=== PATIENT | male | born 1980 | race Caucasian/White ===

== ENCOUNTER 2021-11-30 15:03 | Inpatient (IN) ==
[2021-11-30] MEDS ORDERED: MOM Conc 10 ML UD.LIQ PO PRN (17:18)
[2021-11-30] MEDS: 0.9 % Sodium Chloride 500 ML ONE (17:29)
[2021-11-30] MEDS: *HR* OxyCODONE ER (12 HR) 10 MG TABLET PO SCH (18:11)
[2021-11-30] MEDS: *HR* OxyCODONE Immed Rel 5 MG TABLET PO PRN ×2 (18:36→23:22)
[2021-11-30] MEDS ORDERED: Ipratropium/Albuterol Neb 3 ML IH SCH (20:00)
[2021-11-30] MEDS: Budesonide Neb 0.25 MG/2 ML IH SCH (22:03)
[2021-11-30] MEDS: Ipratropium/Albuterol Neb 3 ML IH SCH (22:03)
[2021-11-30 22:43] LABS: Bilirubin,Urine Negative (Negative); Blood,Urine Negative (Negative); Clarity,Urine Clear (Clear); Color,Urine Yellow (Yellow); Glucose,Urine (UA) Normal (Normal); Ketones,Urine Negative (Negative); Leukocyte Esterase,Urine Negative (Negative); Nitrite,Urine Negative (Negative); Protein,Urine 100 mg/dL (Neg-Trace); Urobilinogen,Urine Normal (Normal)
[2021-11-30 22:44] LABS: Bacteria,Urine None Seen per hpf (None-Few); RBC,Urine 0-3 per hpf (0-3); Squamous Epithelial Cell,Urine Few per hpf (None-Few); WBC,Urine 0-3 per hpf (0-3)
[2021-11-30] MEDS: Gabapentin 300 MG CAPSULE PO SCH (23:21)
[2021-11-30] MEDS: Melatonin 3 MG TABLET PO SCH (23:21)
[2021-11-30] MEDS: Linezolid 600 MG TABLET PO SCH (23:22)
[2021-11-30] MEDS: Sennosides/Docusate Sodium TABLET PO SCH (23:22)
[2021-11-30] MEDS: Meropenem 1,000 MG in 0.9 % Sodium Chloride Mini Bag 100 ML IVPB SCH (23:27)
[2021-12-01] MEDS: Ipratropium/Albuterol Neb 3 ML IH SCH ×4 (04:02→20:57)
[2021-12-01 06:40] LABS: Hematocrit 28.9 % (37.5-50.1); Hemoglobin 8.6 g/dL (12.9-16.9); Mean Corpuscular HGB Conc 29.8 g/dL (31.6-35.5); Mean Corpuscular Hemoglobin 26.7 pg (28.0-33.3); Mean Corpuscular Volume 89.8 fL (83.0-100.0); Mean Platelet Volume 8.8 fL (9.4-12.4); Platelet Count 503 K/mcL (140-400); Red Blood Count 3.22 M/mcL (4.19-5.50); White Blood Count 10.5 K/mcL (4.3-11.1)
[2021-12-01 06:55] LABS: Alanine Aminotransferase 10 Units/L (7-52); Albumin 2.7 g/dL (3.5-5.7); Alkaline Phosphatase 66 Units/L (34-104); Aspartate Amino Transferase 9 Units/L (13-39); BUN/Creatinine Ratio 15 (6-26); Bilirubin,Total 0.2 mg/dL (0.3-1.0); Blood Urea Nitrogen 15 mg/dL (6-20); Calcium 9.1 mg/dL (8.6-10.3); Carbon Dioxide 27 mEq/L (23-29); Chloride 103 mEq/L (98-107); Globulin 2.6 g/dL (2.4-3.5); Glucose 94 mg/dL (70-105); Magnesium 1.7 mg/dL (1.6-2.6); Osmolality,Calculated 285 (280-300); Sodium 137 mEq/L (136-145); Total Protein 5.3 g/dL (6.4-8.9); eGFR For African Americans > 60 (> 60); eGFR For Non-African Americans > 60 (> 60)
[2021-12-01] MEDS: *HR* Enoxaparin 40 MG/0.4 ML SYRINGE SQ SCH (06:55)
[2021-12-01] MEDS: *HR* OxyCODONE ER (12 HR) 10 MG TABLET PO SCH ×2 (06:56→16:27)
[2021-12-01] MEDS: Sennosides/Docusate Sodium TABLET PO SCH ×2 (08:11→20:42)
[2021-12-01] MEDS: Ascorbic Acid 500 MG TABLET PO SCH (08:11)
[2021-12-01] MEDS: Linezolid 600 MG TABLET PO SCH ×2 (08:11→20:42)
[2021-12-01] MEDS: Folic Acid 1 MG TABLET PO SCH (08:12)
[2021-12-01] MEDS: amLODIPine 5 MG TABLET PO SCH (08:12)
[2021-12-01] MEDS: Cholecalciferol (D-3) 1,000 UNIT (25MCG) TABLET PO SCH (08:12)
[2021-12-01] MEDS: Gabapentin 300 MG CAPSULE PO SCH ×2 (08:12→20:42)
[2021-12-01] MEDS: polyethylene glycoL 3350 17 GM POWD.PACK PO SCH (08:12)
[2021-12-01] MEDS: Meropenem 1,000 MG in 0.9 % Sodium Chloride Mini Bag 100 ML IVPB SCH ×2 (08:13→16:26)
[2021-12-01] MEDS: *HR* OxyCODONE Immed Rel 5 MG TABLET PO PRN ×3 (08:31→20:42)
[2021-12-01] MEDS: Budesonide Neb 0.25 MG/2 ML IH SCH ×2 (09:21→16:09)
[2021-12-01] MEDS ORDERED: 0.9 % Sodium Chloride 500 ML ONE (13:04)
[2021-12-01] MEDS: Morphine Sulfate 2 MG/ML SYRINGE IVP PRN (14:33)
[2021-12-01] MEDS: Melatonin 3 MG TABLET PO SCH (20:42)
[2021-12-02] MEDS: Meropenem 1,000 MG in 0.9 % Sodium Chloride Mini Bag 100 ML IVPB SCH ×3 (00:54→16:47)
[2021-12-02] MEDS: *HR* OxyCODONE Immed Rel 5 MG TABLET PO PRN ×5 (00:54→21:57)
[2021-12-02] MEDS ORDERED: 0.9 % Sodium Chloride 500 ML ONE ×2 (01:37→16:46)
[2021-12-02] MEDS: 0.9 % Sodium Chloride 500 ML ONE ×2 (01:39→16:48)
[2021-12-02] MEDS: Ipratropium/Albuterol Neb 3 ML IH SCH ×4 (04:46→22:16)
[2021-12-02] MEDS: *HR* OxyCODONE ER (12 HR) 10 MG TABLET PO SCH ×2 (05:39→16:47)
[2021-12-02] MEDS: *HR* Enoxaparin 40 MG/0.4 ML SYRINGE SQ SCH (05:40)
[2021-12-02] MEDS: Gabapentin 300 MG CAPSULE PO SCH ×2 (08:08→21:57)
[2021-12-02] MEDS: polyethylene glycoL 3350 17 GM POWD.PACK PO SCH (08:08)
[2021-12-02] MEDS: Cholecalciferol (D-3) 1,000 UNIT (25MCG) TABLET PO SCH (08:08)
[2021-12-02] MEDS: Linezolid 600 MG TABLET PO SCH ×2 (08:08→21:57)
[2021-12-02] MEDS: amLODIPine 5 MG TABLET PO SCH (08:08)
[2021-12-02] MEDS: Sennosides/Docusate Sodium TABLET PO SCH ×2 (08:08→21:57)
[2021-12-02] MEDS: Ascorbic Acid 500 MG TABLET PO SCH (08:08)
[2021-12-02] MEDS: Folic Acid 1 MG TABLET PO SCH (08:09)
[2021-12-02] MEDS: Budesonide Neb 0.25 MG/2 ML IH SCH ×2 (08:40→22:16)
[2021-12-02] MEDS: Morphine Sulfate 2 MG/ML SYRINGE IVP PRN (14:45)
[2021-12-02] MEDS: Melatonin 3 MG TABLET PO SCH (21:57)
[2021-12-02] MEDS: diazePAM 2 MG TABLET PO PRN (21:57)
[2021-12-03] MEDS: Meropenem 1,000 MG in 0.9 % Sodium Chloride Mini Bag 100 ML IVPB SCH ×3 (00:13→17:23)
[2021-12-03] MEDS: *HR* OxyCODONE Immed Rel 5 MG TABLET PO PRN ×3 (01:38→23:12)
[2021-12-03] MEDS: *HR* Enoxaparin 40 MG/0.4 ML SYRINGE SQ SCH (06:57)
[2021-12-03] MEDS: *HR* OxyCODONE ER (12 HR) 10 MG TABLET PO SCH ×2 (06:58→17:22)
[2021-12-03] MEDS: Ipratropium/Albuterol Neb 3 ML IH SCH ×2 (07:43→20:49)
[2021-12-03] MEDS: Budesonide Neb 0.25 MG/2 ML IH SCH ×2 (07:43→20:49)
[2021-12-03] MEDS: amLODIPine 5 MG TABLET PO SCH (08:26)
[2021-12-03] MEDS: Gabapentin 300 MG CAPSULE PO SCH ×2 (08:26→23:12)
[2021-12-03] MEDS: Folic Acid 1 MG TABLET PO SCH (08:26)
[2021-12-03] MEDS: Cholecalciferol (D-3) 1,000 UNIT (25MCG) TABLET PO SCH (08:26)
[2021-12-03] MEDS: Linezolid 600 MG TABLET PO SCH ×2 (08:26→23:12)
[2021-12-03] MEDS: polyethylene glycoL 3350 17 GM POWD.PACK PO SCH (08:26)
[2021-12-03] MEDS: Ascorbic Acid 500 MG TABLET PO SCH (08:26)
[2021-12-03] MEDS: Sennosides/Docusate Sodium TABLET PO SCH (08:26)
[2021-12-03] MEDS ORDERED: polyethylene glycoL 3350 17 GM POWD.PACK PO PRN (14:13)
[2021-12-03] MEDS ORDERED: Sennosides/Docusate Sodium TABLET PO PRN (14:13)
[2021-12-03] MEDS: Ondansetron ODT 4 MG TAB.RAPDIS SL PRN (15:52)
[2021-12-03] MEDS: diazePAM 2 MG TABLET PO PRN (23:12)
[2021-12-03] MEDS: Melatonin 3 MG TABLET PO SCH (23:12)
[2021-12-04] MEDS: Meropenem 1,000 MG in 0.9 % Sodium Chloride Mini Bag 100 ML IVPB SCH ×3 (01:05→15:40)
[2021-12-04 05:14] LABS: Basophils # 0.1 K/mcL (0.0-0.2); Basophils % 0.5 %; Eosinophils # 1.7 K/mcL (0.0-0.6); Eosinophils % 16.9 %; Hematocrit 30.2 % (37.5-50.1); Hemoglobin 9.1 g/dL (12.9-16.9); Immature Granulocytes % 0.9 % (0-4); Lymphocytes % 29.1 %; Mean Corpuscular HGB Conc 30.1 g/dL (31.6-35.5); Mean Corpuscular Volume 89.6 fL (83.0-100.0); Monocytes # 0.7 K/mcL (0.0-1.3); Monocytes % 6.7 %; Neutrophils # 4.7 K/mcL (1.6-8.9); Platelet Count 522 K/mcL (140-400); Red Blood Count 3.37 M/mcL (4.19-5.50); Red Cell Distribution Width 14.8 % (11.5-14.5); Segmented Neutrophils % 45.9 %; White Blood Count 10.3 K/mcL (4.3-11.1)
[2021-12-04 05:27] LABS: Alanine Aminotransferase 12 Units/L (7-52); Albumin 2.9 g/dL (3.5-5.7); Alkaline Phosphatase 72 Units/L (34-104); Aspartate Amino Transferase 11 Units/L (13-39); BUN/Creatinine Ratio 20 (6-26); Bilirubin,Total 0.2 mg/dL (0.3-1.0); Blood Urea Nitrogen 18 mg/dL (6-20); Calcium 9.4 mg/dL (8.6-10.3); Carbon Dioxide 25 mEq/L (23-29); Chloride 106 mEq/L (98-107); Glucose 94 mg/dL (70-105); Osmolality,Calculated 290 (280-300); Sodium 139 mEq/L (136-145); Total Protein 5.9 g/dL (6.4-8.9); eGFR For African Americans > 60 (> 60); eGFR For Non-African Americans > 60 (> 60)
[2021-12-04] MEDS: *HR* Enoxaparin 40 MG/0.4 ML SYRINGE SQ SCH (07:03)
[2021-12-04] MEDS: *HR* OxyCODONE ER (12 HR) 10 MG TABLET PO SCH ×2 (07:04→17:48)
[2021-12-04] MEDS: Ipratropium/Albuterol Neb 3 ML IH SCH ×2 (08:02→22:10)
[2021-12-04] MEDS: Budesonide Neb 0.25 MG/2 ML IH SCH ×2 (08:02→22:10)
[2021-12-04] MEDS: Ondansetron 4 MG/2 ML VIAL IVP PRN (09:27)
[2021-12-04] MEDS: Ondansetron ODT 4 MG TAB.RAPDIS SL PRN (10:23)
[2021-12-04] MEDS ORDERED: *HR* Promethazine 25 MG/ML VIAL IM ONE (11:04)
[2021-12-04] MEDS: *HR* OxyCODONE Immed Rel 5 MG TABLET PO PRN ×3 (11:35→20:48)
[2021-12-04] MEDS: Morphine Sulfate 2 MG/ML SYRINGE IVP PRN (13:51)
[2021-12-04] MEDS ORDERED: 0.9 % Sodium Chloride 500 ML ONE (14:13)
[2021-12-04] MEDS: Folic Acid 1 MG TABLET PO SCH (14:17)
[2021-12-04] MEDS: Cholecalciferol (D-3) 1,000 UNIT (25MCG) TABLET PO SCH (14:18)
[2021-12-04] MEDS: Linezolid 600 MG TABLET PO SCH ×2 (14:18→15:40)
[2021-12-04] MEDS: Gabapentin 300 MG CAPSULE PO SCH ×2 (14:18→20:48)
[2021-12-04] MEDS: Ascorbic Acid 500 MG TABLET PO SCH (14:18)
[2021-12-04] MEDS: amLODIPine 5 MG TABLET PO SCH ×2 (14:18→15:38)
[2021-12-04] MEDS: diazePAM 2 MG TABLET PO PRN (20:47)
[2021-12-04] MEDS: Melatonin 3 MG TABLET PO SCH (20:47)
[2021-12-05] MEDS: Meropenem 1,000 MG in 0.9 % Sodium Chloride Mini Bag 100 ML IVPB SCH ×4 (01:03→23:19)
[2021-12-05] MEDS: *HR* OxyCODONE Immed Rel 5 MG TABLET PO PRN ×4 (01:14→21:19)
[2021-12-05] MEDS: *HR* OxyCODONE ER (12 HR) 10 MG TABLET PO SCH ×2 (05:21→17:04)
[2021-12-05] MEDS: *HR* Enoxaparin 40 MG/0.4 ML SYRINGE SQ SCH (05:22)
[2021-12-05] MEDS ORDERED: 0.9 % Sodium Chloride 500 ML ONE (08:51)
[2021-12-05] MEDS: Linezolid 600 MG TABLET PO SCH ×2 (08:55→21:20)
[2021-12-05] MEDS: Folic Acid 1 MG TABLET PO SCH (08:55)
[2021-12-05] MEDS: Gabapentin 300 MG CAPSULE PO SCH ×2 (08:55→21:20)
[2021-12-05] MEDS: Cholecalciferol (D-3) 1,000 UNIT (25MCG) TABLET PO SCH (08:55)
[2021-12-05] MEDS: Ascorbic Acid 500 MG TABLET PO SCH (08:55)
[2021-12-05] MEDS: amLODIPine 5 MG TABLET PO SCH (08:56)
[2021-12-05] MEDS: Ipratropium/Albuterol Neb 3 ML IH SCH ×2 (09:45→21:41)
[2021-12-05] MEDS: Budesonide Neb 0.25 MG/2 ML IH SCH ×2 (09:45→21:41)
[2021-12-05] MEDS: Melatonin 3 MG TABLET PO SCH (21:20)
[2021-12-05] MEDS: diazePAM 2 MG TABLET PO PRN (21:27)
[2021-12-06] MEDS: *HR* OxyCODONE ER (12 HR) 10 MG TABLET PO SCH ×2 (05:26→16:20)
[2021-12-06] MEDS: *HR* Enoxaparin 40 MG/0.4 ML SYRINGE SQ SCH (05:26)
[2021-12-06 05:37] LABS: Basophils # 0.1 K/mcL (0.0-0.2); Basophils % 0.5 %; Eosinophils # 1.7 K/mcL (0.0-0.6); Eosinophils % 15.7 %; Hematocrit 27.4 % (37.5-50.1); Hemoglobin 8.3 g/dL (12.9-16.9); Immature Granulocytes % 0.7 % (0-4); Lymphocytes # 3.6 K/mcL (0.6-4.6); Lymphocytes % 33.5 %; Mean Corpuscular HGB Conc 30.3 g/dL (31.6-35.5); Mean Corpuscular Hemoglobin 26.9 pg (28.0-33.3); Mean Corpuscular Volume 88.7 fL (83.0-100.0); Monocytes # 0.7 K/mcL (0.0-1.3); Monocytes % 6.7 %; Neutrophils # 4.7 K/mcL (1.6-8.9); Platelet Count 487 K/mcL (140-400); Red Blood Count 3.09 M/mcL (4.19-5.50); Red Cell Distribution Width 14.7 % (11.5-14.5); Segmented Neutrophils % 42.9 %; White Blood Count 10.9 K/mcL (4.3-11.1)
[2021-12-06 05:55] LABS: Alanine Aminotransferase 11 Units/L (7-52); Albumin 2.7 g/dL (3.5-5.7); Alkaline Phosphatase 62 Units/L (34-104); Aspartate Amino Transferase 11 Units/L (13-39); BUN/Creatinine Ratio 20 (6-26); Bilirubin,Total 0.2 mg/dL (0.3-1.0); Blood Urea Nitrogen 19 mg/dL (6-20); Calcium 8.4 mg/dL (8.6-10.3); Carbon Dioxide 26 mEq/L (23-29); Chloride 104 mEq/L (98-107); Globulin 2.7 g/dL (2.4-3.5); Glucose 93 mg/dL (70-105); Osmolality,Calculated 286 (280-300); Potassium 3.7 mEq/L (3.5-5.1); Sodium 137 mEq/L (136-145); Total Protein 5.4 g/dL (6.4-8.9); eGFR For African Americans > 60 (> 60); eGFR For Non-African Americans > 60 (> 60)
[2021-12-06] MEDS ORDERED: 0.9 % Sodium Chloride 500 ML ONE (06:15)
[2021-12-06] MEDS: Budesonide Neb 0.25 MG/2 ML IH SCH ×2 (07:39→22:14)
[2021-12-06] MEDS: Ipratropium/Albuterol Neb 3 ML IH SCH ×2 (07:39→22:14)
[2021-12-06] MEDS: Ondansetron 4 MG/2 ML VIAL IVP PRN (08:45)
[2021-12-06] MEDS: Meropenem 1,000 MG in 0.9 % Sodium Chloride Mini Bag 100 ML IVPB SCH ×2 (09:34→16:20)
[2021-12-06] MEDS: Cholecalciferol (D-3) 1,000 UNIT (25MCG) TABLET PO SCH (09:42)
[2021-12-06] MEDS: Linezolid 600 MG TABLET PO SCH ×2 (09:42→20:40)
[2021-12-06] MEDS: Folic Acid 1 MG TABLET PO SCH (09:42)
[2021-12-06] MEDS: amLODIPine 5 MG TABLET PO SCH (09:42)
[2021-12-06] MEDS: Gabapentin 300 MG CAPSULE PO SCH ×2 (09:42→20:40)
[2021-12-06] MEDS: *HR* OxyCODONE Immed Rel 5 MG TABLET PO PRN ×3 (09:49→20:41)
[2021-12-06] MEDS: Ascorbic Acid 500 MG TABLET PO SCH (11:07)
[2021-12-06] MEDS: Morphine Sulfate 2 MG/ML SYRINGE IVP PRN (12:29)
[2021-12-06] MEDS ORDERED: Bisacodyl 10 MG RECTAL SUPPOSITORY RC PRN (17:17)
[2021-12-06] MEDS ORDERED: Lactulose Oral Soln 20 GM/30 ML UDC PO ONE (17:17)
[2021-12-06] MEDS: diazePAM 2 MG TABLET PO PRN (20:40)
[2021-12-06] MEDS: Melatonin 3 MG TABLET PO SCH (20:40)
[2021-12-06] MEDS: Sennosides/Docusate Sodium TABLET PO SCH (20:40)
[2021-12-07] MEDS: *HR* OxyCODONE Immed Rel 5 MG TABLET PO PRN ×5 (00:46→20:30)
[2021-12-07] MEDS: Meropenem 1,000 MG in 0.9 % Sodium Chloride Mini Bag 100 ML IVPB SCH ×3 (00:47→15:24)
[2021-12-07] MEDS: *HR* OxyCODONE ER (12 HR) 10 MG TABLET PO SCH ×2 (05:35→17:36)
[2021-12-07] MEDS: *HR* Enoxaparin 40 MG/0.4 ML SYRINGE SQ SCH (05:35)
[2021-12-07] MEDS: Ipratropium/Albuterol Neb 3 ML IH SCH ×2 (07:42→22:06)
[2021-12-07] MEDS: Budesonide Neb 0.25 MG/2 ML IH SCH ×2 (07:42→22:06)
[2021-12-07] MEDS: polyethylene glycoL 3350 17 GM POWD.PACK PO SCH (08:12)
[2021-12-07] MEDS: Sennosides/Docusate Sodium TABLET PO SCH ×2 (08:12→20:30)
[2021-12-07] MEDS: Cholecalciferol (D-3) 1,000 UNIT (25MCG) TABLET PO SCH (08:12)
[2021-12-07] MEDS: Gabapentin 300 MG CAPSULE PO SCH ×2 (08:12→20:30)
[2021-12-07] MEDS: Folic Acid 1 MG TABLET PO SCH (08:12)
[2021-12-07] MEDS: Ascorbic Acid 500 MG TABLET PO SCH (08:12)
[2021-12-07] MEDS: Linezolid 600 MG TABLET PO SCH ×2 (08:12→20:30)
[2021-12-07] MEDS: amLODIPine 5 MG TABLET PO SCH (08:12)
[2021-12-07] MEDS: Morphine Sulfate 2 MG/ML SYRINGE IVP PRN (14:32)
[2021-12-07] MEDS: diazePAM 2 MG TABLET PO PRN ×2 (15:23→20:29)
[2021-12-07] MEDS: Melatonin 3 MG TABLET PO SCH (20:29)
[2021-12-08] MEDS: Meropenem 1,000 MG in 0.9 % Sodium Chloride Mini Bag 100 ML IVPB SCH ×3 (00:27→18:28)
[2021-12-08] MEDS: *HR* Enoxaparin 40 MG/0.4 ML SYRINGE SQ SCH (06:38)
[2021-12-08] MEDS: *HR* OxyCODONE ER (12 HR) 10 MG TABLET PO SCH ×2 (06:38→18:28)
[2021-12-08] MEDS: Ascorbic Acid 500 MG TABLET PO SCH (08:01)
[2021-12-08] MEDS: Sennosides/Docusate Sodium TABLET PO SCH ×2 (08:01→20:05)
[2021-12-08] MEDS: amLODIPine 5 MG TABLET PO SCH (08:01)
[2021-12-08] MEDS: polyethylene glycoL 3350 17 GM POWD.PACK PO SCH (08:01)
[2021-12-08] MEDS: Folic Acid 1 MG TABLET PO SCH (08:01)
[2021-12-08] MEDS: Cholecalciferol (D-3) 1,000 UNIT (25MCG) TABLET PO SCH (08:01)
[2021-12-08] MEDS: Linezolid 600 MG TABLET PO SCH ×2 (08:01→20:05)
[2021-12-08] MEDS: Gabapentin 300 MG CAPSULE PO SCH ×2 (08:01→20:05)
[2021-12-08] MEDS: Budesonide Neb 0.25 MG/2 ML IH SCH ×2 (09:26→22:25)
[2021-12-08] MEDS: Ipratropium/Albuterol Neb 3 ML IH SCH ×2 (09:27→22:25)
[2021-12-08] MEDS ORDERED: 0.9 % Sodium Chloride 500 ML ONE (16:01)
[2021-12-08] MEDS: diazePAM 2 MG TABLET PO PRN (20:05)
[2021-12-08] MEDS: Melatonin 3 MG TABLET PO SCH (20:05)
[2021-12-08] MEDS: *HR* OxyCODONE Immed Rel 5 MG TABLET PO PRN (20:19)
[2021-12-08] MEDS ORDERED: Lactulose Oral Soln 20 GM/30 ML UDC PO PRN (21:03)
[2021-12-09] MEDS: Meropenem 1,000 MG in 0.9 % Sodium Chloride Mini Bag 100 ML IVPB SCH ×4 (00:02→22:32)
[2021-12-09] MEDS: *HR* Enoxaparin 40 MG/0.4 ML SYRINGE SQ SCH (06:35)
[2021-12-09] MEDS: *HR* OxyCODONE ER (12 HR) 10 MG TABLET PO SCH ×2 (06:35→17:27)
[2021-12-09] MEDS: Budesonide Neb 0.25 MG/2 ML IH SCH ×2 (07:54→22:11)
[2021-12-09] MEDS: Ipratropium/Albuterol Neb 3 ML IH SCH ×2 (07:54→22:11)
[2021-12-09] MEDS: Ascorbic Acid 500 MG TABLET PO SCH (08:03)
[2021-12-09] MEDS: Gabapentin 300 MG CAPSULE PO SCH ×2 (08:03→20:09)
[2021-12-09] MEDS: amLODIPine 5 MG TABLET PO SCH (08:03)
[2021-12-09] MEDS: Folic Acid 1 MG TABLET PO SCH (08:03)
[2021-12-09] MEDS: Sennosides/Docusate Sodium TABLET PO SCH ×2 (08:03→20:09)
[2021-12-09] MEDS: Ondansetron 4 MG/2 ML VIAL IVP PRN (08:04)
[2021-12-09] MEDS: Linezolid 600 MG TABLET PO SCH ×2 (08:04→20:09)
[2021-12-09] MEDS: polyethylene glycoL 3350 17 GM POWD.PACK PO SCH (08:04)
[2021-12-09] MEDS: Cholecalciferol (D-3) 1,000 UNIT (25MCG) TABLET PO SCH (08:04)
[2021-12-09] MEDS: Melatonin 3 MG TABLET PO SCH (20:09)
[2021-12-09] MEDS: diazePAM 2 MG TABLET PO PRN (20:09)
[2021-12-10] MEDS ORDERED: 0.9 % Sodium Chloride 500 ML ONE (05:16)
[2021-12-10] MEDS: *HR* Enoxaparin 40 MG/0.4 ML SYRINGE SQ SCH (05:48)
[2021-12-10] MEDS: *HR* OxyCODONE ER (12 HR) 10 MG TABLET PO SCH ×2 (05:55→18:12)
[2021-12-10 06:20] LABS: Hematocrit 29.6 % (37.5-50.1); Hemoglobin 9.1 g/dL (12.9-16.9); Mean Corpuscular HGB Conc 30.7 g/dL (31.6-35.5); Mean Corpuscular Hemoglobin 26.6 pg (28.0-33.3); Mean Corpuscular Volume 86.5 fL (83.0-100.0); Mean Platelet Volume 9.2 fL (9.4-12.4); Platelet Count 534 K/mcL (140-400); Red Blood Count 3.42 M/mcL (4.19-5.50); Red Cell Distribution Width 14.2 % (11.5-14.5); White Blood Count 11.7 K/mcL (4.3-11.1)
[2021-12-10 06:38] LABS: Alanine Aminotransferase 14 Units/L (7-52); Albumin 2.7 g/dL (3.5-5.7); Alkaline Phosphatase 63 Units/L (34-104); Aspartate Amino Transferase 13 Units/L (13-39); BUN/Creatinine Ratio 17 (6-26); Bilirubin,Total 0.3 mg/dL (0.3-1.0); Blood Urea Nitrogen 13 mg/dL (6-20); Calcium 8.5 mg/dL (8.6-10.3); Carbon Dioxide 26 mEq/L (23-29); Chloride 106 mEq/L (98-107); Globulin 2.7 g/dL (2.4-3.5); Glucose 81 mg/dL (70-105); Magnesium 2.3 mg/dL (1.6-2.6); Osmolality,Calculated 287 (280-300); Potassium 3.5 mEq/L (3.5-5.1); Sodium 139 mEq/L (136-145); Total Protein 5.4 g/dL (6.4-8.9); eGFR For African Americans > 60 (> 60); eGFR For Non-African Americans > 60 (> 60)
[2021-12-10] MEDS: Gabapentin 300 MG CAPSULE PO SCH ×2 (07:52→20:38)
[2021-12-10] MEDS: amLODIPine 5 MG TABLET PO SCH (07:52)
[2021-12-10] MEDS: Cholecalciferol (D-3) 1,000 UNIT (25MCG) TABLET PO SCH (07:53)
[2021-12-10] MEDS: Meropenem 1,000 MG in 0.9 % Sodium Chloride Mini Bag 100 ML IVPB SCH ×3 (07:53→22:35)
[2021-12-10] MEDS: Ascorbic Acid 500 MG TABLET PO SCH (07:53)
[2021-12-10] MEDS: polyethylene glycoL 3350 17 GM POWD.PACK PO SCH (07:53)
[2021-12-10] MEDS: Folic Acid 1 MG TABLET PO SCH (07:53)
[2021-12-10] MEDS: Sennosides/Docusate Sodium TABLET PO SCH ×2 (07:53→20:38)
[2021-12-10] MEDS: Linezolid 600 MG TABLET PO SCH ×2 (07:53→20:38)
[2021-12-10] MEDS: Ipratropium/Albuterol Neb 3 ML IH SCH ×2 (10:01→21:42)
[2021-12-10] MEDS: Budesonide Neb 0.25 MG/2 ML IH SCH ×2 (10:01→21:42)
[2021-12-10] MEDS: Ondansetron 4 MG/2 ML VIAL IVP PRN (13:50)
[2021-12-10] MEDS: 0.9 % Sodium Chloride 1,000 ML IVC SCH ×2 (14:40→23:42)
[2021-12-10] MEDS: diazePAM 2 MG TABLET PO PRN (20:38)
[2021-12-10] MEDS: *HR* OxyCODONE Immed Rel 5 MG TABLET PO PRN (20:38)
[2021-12-10] MEDS: Melatonin 3 MG TABLET PO SCH (20:38)
[2021-12-11] MEDS: *HR* Enoxaparin 40 MG/0.4 ML SYRINGE SQ SCH (05:34)
[2021-12-11] MEDS: *HR* OxyCODONE ER (12 HR) 10 MG TABLET PO SCH ×2 (05:34→18:44)
[2021-12-11] MEDS: Meropenem 1,000 MG in 0.9 % Sodium Chloride Mini Bag 100 ML IVPB SCH ×3 (08:49→22:22)
[2021-12-11] MEDS: Cholecalciferol (D-3) 1,000 UNIT (25MCG) TABLET PO SCH (08:50)
[2021-12-11] MEDS: Gabapentin 300 MG CAPSULE PO SCH ×2 (08:50→20:38)
[2021-12-11] MEDS: *HR* OxyCODONE Immed Rel 5 MG TABLET PO PRN ×4 (08:50→21:04)
[2021-12-11] MEDS: Linezolid 600 MG TABLET PO SCH ×2 (08:50→20:37)
[2021-12-11] MEDS: amLODIPine 5 MG TABLET PO SCH (08:50)
[2021-12-11] MEDS: Sennosides/Docusate Sodium TABLET PO SCH ×2 (08:50→20:38)
[2021-12-11] MEDS: Ascorbic Acid 500 MG TABLET PO SCH (08:50)
[2021-12-11] MEDS: Folic Acid 1 MG TABLET PO SCH (08:50)
[2021-12-11] MEDS: polyethylene glycoL 3350 17 GM POWD.PACK PO SCH (09:09)
[2021-12-11] MEDS: Ipratropium/Albuterol Neb 3 ML IH SCH ×2 (10:02→21:53)
[2021-12-11] MEDS: Budesonide Neb 0.25 MG/2 ML IH SCH ×2 (10:02→21:53)
[2021-12-11] MEDS: Melatonin 3 MG TABLET PO SCH (20:37)
[2021-12-11] MEDS: diazePAM 2 MG TABLET PO PRN (20:38)
[2021-12-12] MEDS ORDERED: 0.9 % Sodium Chloride 500 ML ONE (01:34)
[2021-12-12 04:55] LABS: Hematocrit 27.1 % (37.5-50.1); Hemoglobin 8.3 g/dL (12.9-16.9); Mean Corpuscular HGB Conc 30.6 g/dL (31.6-35.5); Mean Corpuscular Hemoglobin 26.6 pg (28.0-33.3); Mean Corpuscular Volume 86.9 fL (83.0-100.0); Mean Platelet Volume 9.2 fL (9.4-12.4); Platelet Count 466 K/mcL (140-400); Red Blood Count 3.12 M/mcL (4.19-5.50); Red Cell Distribution Width 14.4 % (11.5-14.5); White Blood Count 11.6 K/mcL (4.3-11.1)
[2021-12-12 05:11] LABS: BUN/Creatinine Ratio 17 (6-26); Blood Urea Nitrogen 16 mg/dL (6-20); Calcium 8.2 mg/dL (8.6-10.3); Carbon Dioxide 26 mEq/L (23-29); Chloride 104 mEq/L (98-107); Glucose 91 mg/dL (70-105); Magnesium 2.5 mg/dL (1.6-2.6); Osmolality,Calculated 285 (280-300); Potassium 3.6 mEq/L (3.5-5.1); Sodium 137 mEq/L (136-145); eGFR For African Americans > 60 (> 60); eGFR For Non-African Americans > 60 (> 60)
[2021-12-12] MEDS: *HR* Enoxaparin 40 MG/0.4 ML SYRINGE SQ SCH (05:48)
[2021-12-12] MEDS: *HR* OxyCODONE ER (12 HR) 10 MG TABLET PO SCH ×2 (05:51→21:04)
[2021-12-12] MEDS: *HR* OxyCODONE Immed Rel 5 MG TABLET PO PRN ×3 (07:56→16:05)
[2021-12-12] MEDS: Ascorbic Acid 500 MG TABLET PO SCH (07:57)
[2021-12-12] MEDS: Sennosides/Docusate Sodium TABLET PO SCH ×2 (07:57→21:04)
[2021-12-12] MEDS: Cholecalciferol (D-3) 1,000 UNIT (25MCG) TABLET PO SCH (07:57)
[2021-12-12] MEDS: Linezolid 600 MG TABLET PO SCH ×2 (07:57→21:04)
[2021-12-12] MEDS: amLODIPine 5 MG TABLET PO SCH (07:57)
[2021-12-12] MEDS: Folic Acid 1 MG TABLET PO SCH (07:57)
[2021-12-12] MEDS: Gabapentin 300 MG CAPSULE PO SCH ×2 (07:57→21:04)
[2021-12-12] MEDS: polyethylene glycoL 3350 17 GM POWD.PACK PO SCH (07:58)
[2021-12-12] MEDS: Meropenem 1,000 MG in 0.9 % Sodium Chloride Mini Bag 100 ML IVPB SCH ×2 (07:58→16:05)
[2021-12-12] MEDS: Ipratropium/Albuterol Neb 3 ML IH SCH ×2 (08:40→21:34)
[2021-12-12] MEDS: Budesonide Neb 0.25 MG/2 ML IH SCH ×2 (08:40→21:34)
[2021-12-12] MEDS: Ondansetron ODT 4 MG TAB.RAPDIS SL PRN ×2 (08:45→16:05)
[2021-12-12] MEDS: Melatonin 3 MG TABLET PO SCH (21:04)
[2021-12-12] MEDS: diazePAM 2 MG TABLET PO PRN (21:04)
[2021-12-13] MEDS: Meropenem 1,000 MG in 0.9 % Sodium Chloride Mini Bag 100 ML IVPB SCH ×3 (00:42→16:46)
[2021-12-13] MEDS: *HR* Enoxaparin 40 MG/0.4 ML SYRINGE SQ SCH (06:10)
[2021-12-13] MEDS: Ondansetron ODT 4 MG TAB.RAPDIS SL SCH ×2 (06:10→09:46)
[2021-12-13] MEDS: Ascorbic Acid 500 MG TABLET PO SCH (08:43)
[2021-12-13] MEDS: Cholecalciferol (D-3) 1,000 UNIT (25MCG) TABLET PO SCH (08:43)
[2021-12-13] MEDS: Gabapentin 300 MG CAPSULE PO SCH ×2 (08:43→21:30)
[2021-12-13] MEDS: Ondansetron ODT 4 MG TAB.RAPDIS SL PRN (08:44)
[2021-12-13] MEDS: *HR* OxyCODONE Immed Rel 5 MG TABLET PO PRN ×3 (08:44→16:46)
[2021-12-13] MEDS: *HR* OxyCODONE ER (12 HR) 10 MG TABLET PO SCH ×2 (08:44→21:31)
[2021-12-13] MEDS: amLODIPine 5 MG TABLET PO SCH (08:45)
[2021-12-13] MEDS: Linezolid 600 MG TABLET PO SCH ×2 (08:45→21:30)
[2021-12-13] MEDS: Folic Acid 1 MG TABLET PO SCH (08:45)
[2021-12-13] MEDS: Ipratropium/Albuterol Neb 3 ML IH SCH ×2 (09:08→20:22)
[2021-12-13] MEDS: Budesonide Neb 0.25 MG/2 ML IH SCH ×2 (09:08→20:22)
[2021-12-13] MEDS: Sennosides/Docusate Sodium TABLET PO SCH (09:20)
[2021-12-13] MEDS: polyethylene glycoL 3350 17 GM POWD.PACK PO SCH (09:20)
[2021-12-13] MEDS: Melatonin 3 MG TABLET PO SCH (21:30)
[2021-12-13] MEDS: diazePAM 2 MG TABLET PO PRN (21:31)
[2021-12-14] MEDS: Meropenem 1,000 MG in 0.9 % Sodium Chloride Mini Bag 100 ML IVPB SCH ×4 (00:41→23:03)
[2021-12-14] MEDS: *HR* Enoxaparin 40 MG/0.4 ML SYRINGE SQ SCH (05:52)
[2021-12-14] MEDS: Ipratropium/Albuterol Neb 3 ML IH SCH ×2 (07:06→22:21)
[2021-12-14] MEDS: Budesonide Neb 0.25 MG/2 ML IH SCH ×2 (07:06→22:21)
[2021-12-14] MEDS: Folic Acid 1 MG TABLET PO SCH (08:57)
[2021-12-14] MEDS: Linezolid 600 MG TABLET PO SCH ×2 (08:57→20:46)
[2021-12-14] MEDS: *HR* OxyCODONE ER (12 HR) 10 MG TABLET PO SCH ×2 (08:57→20:46)
[2021-12-14] MEDS: *HR* OxyCODONE Immed Rel 5 MG TABLET PO PRN ×3 (08:57→23:04)
[2021-12-14] MEDS: amLODIPine 5 MG TABLET PO SCH (08:58)
[2021-12-14] MEDS: Cholecalciferol (D-3) 1,000 UNIT (25MCG) TABLET PO SCH (08:58)
[2021-12-14] MEDS: Ondansetron ODT 4 MG TAB.RAPDIS SL SCH (08:58)
[2021-12-14] MEDS: Ascorbic Acid 500 MG TABLET PO SCH (08:58)
[2021-12-14] MEDS: Gabapentin 300 MG CAPSULE PO SCH ×2 (08:58→20:46)
[2021-12-14] MEDS ORDERED: polyethylene glycoL 3350 17 GM POWD.PACK PO SCH (09:00)
[2021-12-14] MEDS: Ondansetron ODT 4 MG TAB.RAPDIS SL PRN (15:39)
[2021-12-14] MEDS: diazePAM 2 MG TABLET PO PRN (20:46)
[2021-12-14] MEDS: Melatonin 3 MG TABLET PO SCH (20:47)
[2021-12-15] MEDS: *HR* OxyCODONE Immed Rel 5 MG TABLET PO PRN ×5 (06:04→23:04)
[2021-12-15] MEDS: *HR* Enoxaparin 40 MG/0.4 ML SYRINGE SQ SCH (06:04)
[2021-12-15 06:22] LABS: Basophils # 0.1 K/mcL (0.0-0.2); Basophils % 0.5 %; Eosinophils # 1.2 K/mcL (0.0-0.6); Eosinophils % 11.4 %; Hemoglobin 8.7 g/dL (12.9-16.9); Immature Granulocytes % 0.5 % (0-4); Lymphocytes # 3.2 K/mcL (0.6-4.6); Lymphocytes % 30.9 %; Mean Corpuscular HGB Conc 31.1 g/dL (31.6-35.5); Mean Corpuscular Hemoglobin 26.8 pg (28.0-33.3); Mean Corpuscular Volume 86.2 fL (83.0-100.0); Mean Platelet Volume 8.6 fL (9.4-12.4); Monocytes # 0.6 K/mcL (0.0-1.3); Monocytes % 5.7 %; Neutrophils # 5.3 K/mcL (1.6-8.9); Platelet Count 431 K/mcL (140-400); Red Blood Count 3.25 M/mcL (4.19-5.50); Red Cell Distribution Width 14.3 % (11.5-14.5); White Blood Count 10.5 K/mcL (4.3-11.1)
[2021-12-15 06:37] LABS: Alanine Aminotransferase 9 Units/L (7-52); Albumin 2.7 g/dL (3.5-5.7); Albumin/Globulin Ratio 1.1 (1.1-2.2); Alkaline Phosphatase 54 Units/L (34-104); Aspartate Amino Transferase 9 Units/L (13-39); BUN/Creatinine Ratio 17 (6-26); Bilirubin,Total 0.2 mg/dL (0.3-1.0); Blood Urea Nitrogen 18 mg/dL (6-20); Calcium 8.7 mg/dL (8.6-10.3); Carbon Dioxide 27 mEq/L (23-29); Chloride 105 mEq/L (98-107); Globulin 2.4 g/dL (2.4-3.5); Glucose 93 mg/dL (70-105); Osmolality,Calculated 286 (280-300); Potassium 3.7 mEq/L (3.5-5.1); Sodium 137 mEq/L (136-145); Total Protein 5.1 g/dL (6.4-8.9); eGFR For African Americans > 60 (> 60); eGFR For Non-African Americans > 60 (> 60)
[2021-12-15] MEDS: Gabapentin 300 MG CAPSULE PO SCH ×2 (09:14→20:22)
[2021-12-15] MEDS: amLODIPine 5 MG TABLET PO SCH (09:14)
[2021-12-15] MEDS: Folic Acid 1 MG TABLET PO SCH (09:14)
[2021-12-15] MEDS: *HR* OxyCODONE ER (12 HR) 10 MG TABLET PO SCH ×2 (09:14→20:22)
[2021-12-15] MEDS: Cholecalciferol (D-3) 1,000 UNIT (25MCG) TABLET PO SCH (09:14)
[2021-12-15] MEDS: Meropenem 1,000 MG in 0.9 % Sodium Chloride Mini Bag 100 ML IVPB SCH ×3 (09:14→23:03)
[2021-12-15] MEDS: Linezolid 600 MG TABLET PO SCH ×2 (09:14→20:22)
[2021-12-15] MEDS: Ascorbic Acid 500 MG TABLET PO SCH (09:14)
[2021-12-15] MEDS: Ondansetron ODT 4 MG TAB.RAPDIS SL SCH (09:14)
[2021-12-15] MEDS: Budesonide Neb 0.25 MG/2 ML IH SCH (09:45)
[2021-12-15] MEDS: Ipratropium/Albuterol Neb 3 ML IH SCH (09:45)
[2021-12-15] MEDS ORDERED: 0.9 % Sodium Chloride 500 ML ONE (13:20)
[2021-12-15] MEDS: Melatonin 3 MG TABLET PO SCH (20:23)
[2021-12-15] MEDS: diazePAM 2 MG TABLET PO PRN (20:23)
[2021-12-16] MEDS: *HR* Enoxaparin 40 MG/0.4 ML SYRINGE SQ SCH (05:57)
[2021-12-16] MEDS: *HR* OxyCODONE Immed Rel 5 MG TABLET PO PRN ×5 (05:57→22:56)
[2021-12-16] MEDS: Gabapentin 300 MG CAPSULE PO SCH ×2 (08:44→20:57)
[2021-12-16] MEDS: Meropenem 1,000 MG in 0.9 % Sodium Chloride Mini Bag 100 ML IVPB SCH ×3 (08:44→22:55)
[2021-12-16] MEDS: Ondansetron ODT 4 MG TAB.RAPDIS SL SCH (08:45)
[2021-12-16] MEDS: Ascorbic Acid 500 MG TABLET PO SCH (08:45)
[2021-12-16] MEDS: Folic Acid 1 MG TABLET PO SCH (08:45)
[2021-12-16] MEDS: amLODIPine 5 MG TABLET PO SCH (08:45)
[2021-12-16] MEDS: *HR* OxyCODONE ER (12 HR) 10 MG TABLET PO SCH ×2 (08:45→20:57)
[2021-12-16] MEDS: Cholecalciferol (D-3) 1,000 UNIT (25MCG) TABLET PO SCH (08:45)
[2021-12-16] MEDS: Linezolid 600 MG TABLET PO SCH ×2 (08:45→20:57)
[2021-12-16] MEDS: polyethylene glycoL 3350 17 GM POWD.PACK PO PRN (20:57)
[2021-12-16] MEDS: Melatonin 3 MG TABLET PO SCH (20:57)
[2021-12-16] MEDS: diazePAM 2 MG TABLET PO PRN (20:58)
[2021-12-17] MEDS: *HR* Enoxaparin 40 MG/0.4 ML SYRINGE SQ SCH (05:50)
[2021-12-17] MEDS: *HR* OxyCODONE Immed Rel 5 MG TABLET PO PRN ×5 (05:50→22:54)
[2021-12-17] MEDS: Meropenem 1,000 MG in 0.9 % Sodium Chloride Mini Bag 100 ML IVPB SCH ×3 (08:44→22:54)
[2021-12-17] MEDS: Cholecalciferol (D-3) 1,000 UNIT (25MCG) TABLET PO SCH (08:46)
[2021-12-17] MEDS: amLODIPine 5 MG TABLET PO SCH (08:47)
[2021-12-17] MEDS: Linezolid 600 MG TABLET PO SCH ×2 (08:47→20:49)
[2021-12-17] MEDS: Ascorbic Acid 500 MG TABLET PO SCH (08:48)
[2021-12-17] MEDS: *HR* OxyCODONE ER (12 HR) 10 MG TABLET PO SCH ×2 (08:48→20:49)
[2021-12-17] MEDS: Folic Acid 1 MG TABLET PO SCH (08:48)
[2021-12-17] MEDS: Ondansetron ODT 4 MG TAB.RAPDIS SL SCH (08:49)
[2021-12-17] MEDS: Gabapentin 300 MG CAPSULE PO SCH ×2 (08:50→20:50)
[2021-12-17] MEDS ORDERED: 0.9 % Sodium Chloride 500 ML ONE (09:00)
[2021-12-17] MEDS: Melatonin 3 MG TABLET PO SCH (20:50)
[2021-12-17] MEDS ORDERED: diazePAM 2 MG TABLET PO ONE (21:15)
[2021-12-18] MEDS: *HR* OxyCODONE Immed Rel 5 MG TABLET PO PRN ×3 (04:14→22:54)
[2021-12-18] MEDS: *HR* Enoxaparin 40 MG/0.4 ML SYRINGE SQ SCH (04:14)
[2021-12-18 05:09] LABS: Basophils % 0.3 %; Eosinophils # 1.4 K/mcL (0.0-0.6); Eosinophils % 11.6 %; Hematocrit 28.4 % (37.5-50.1); Hemoglobin 8.8 g/dL (12.9-16.9); Immature Granulocytes % 0.3 % (0-4); Lymphocytes # 3.6 K/mcL (0.6-4.6); Lymphocytes % 30.1 %; Mean Corpuscular Hemoglobin 26.6 pg (28.0-33.3); Mean Corpuscular Volume 85.8 fL (83.0-100.0); Mean Platelet Volume 9.2 fL (9.4-12.4); Monocytes # 0.7 K/mcL (0.0-1.3); Monocytes % 6.1 %; Neutrophils # 6.1 K/mcL (1.6-8.9); Platelet Count 481 K/mcL (140-400); Red Blood Count 3.31 M/mcL (4.19-5.50); Red Cell Distribution Width 13.9 % (11.5-14.5); Segmented Neutrophils % 51.6 %; White Blood Count 11.9 K/mcL (4.3-11.1)
[2021-12-18 05:28] LABS: Alanine Aminotransferase 7 Units/L (7-52); Albumin 2.8 g/dL (3.5-5.7); Albumin/Globulin Ratio 1.2 (1.1-2.2); Alkaline Phosphatase 57 Units/L (34-104); Aspartate Amino Transferase 8 Units/L (13-39); BUN/Creatinine Ratio 16 (6-26); Bilirubin,Total 0.2 mg/dL (0.3-1.0); Blood Urea Nitrogen 15 mg/dL (6-20); Calcium 8.5 mg/dL (8.6-10.3); Carbon Dioxide 28 mEq/L (23-29); Chloride 104 mEq/L (98-107); Globulin 2.4 g/dL (2.4-3.5); Glucose 89 mg/dL (70-105); Osmolality,Calculated 286 (280-300); Potassium 3.9 mEq/L (3.5-5.1); Sodium 138 mEq/L (136-145); Total Protein 5.2 g/dL (6.4-8.9); eGFR For African Americans > 60 (> 60); eGFR For Non-African Americans > 60 (> 60)
[2021-12-18] MEDS: amLODIPine 5 MG TABLET PO SCH (08:24)
[2021-12-18] MEDS: Folic Acid 1 MG TABLET PO SCH (08:24)
[2021-12-18] MEDS: Ascorbic Acid 500 MG TABLET PO SCH (08:24)
[2021-12-18] MEDS: *HR* OxyCODONE ER (12 HR) 10 MG TABLET PO SCH ×2 (08:24→20:57)
[2021-12-18] MEDS: Linezolid 600 MG TABLET PO SCH ×2 (08:24→20:57)
[2021-12-18] MEDS: Gabapentin 300 MG CAPSULE PO SCH ×2 (08:24→20:57)
[2021-12-18] MEDS: Cholecalciferol (D-3) 1,000 UNIT (25MCG) TABLET PO SCH (08:24)
[2021-12-18] MEDS: Meropenem 1,000 MG in 0.9 % Sodium Chloride Mini Bag 100 ML IVPB SCH ×3 (08:25→22:53)
[2021-12-18] MEDS: Ondansetron ODT 4 MG TAB.RAPDIS SL PRN ×2 (10:10→20:57)
[2021-12-18] MEDS: Ondansetron 4 MG/2 ML VIAL IVP PRN (14:42)
[2021-12-18 15:16] LABS: C-Reactive Protein 54 mg/L (Less than 10)
[2021-12-18] MEDS: Melatonin 3 MG TABLET PO SCH (20:56)
[2021-12-18] MEDS: diazePAM 2 MG TABLET PO PRN (20:57)
[2021-12-19] MEDS: *HR* Enoxaparin 40 MG/0.4 ML SYRINGE SQ SCH (05:58)
[2021-12-19] MEDS: *HR* OxyCODONE Immed Rel 5 MG TABLET PO PRN ×3 (05:59→22:53)
[2021-12-19] MEDS: Linezolid 600 MG TABLET PO SCH ×2 (08:47→20:58)
[2021-12-19] MEDS: Gabapentin 300 MG CAPSULE PO SCH ×2 (08:48→20:58)
[2021-12-19] MEDS: amLODIPine 5 MG TABLET PO SCH (08:48)
[2021-12-19] MEDS: Cholecalciferol (D-3) 1,000 UNIT (25MCG) TABLET PO SCH (08:48)
[2021-12-19] MEDS: Ondansetron ODT 4 MG TAB.RAPDIS SL SCH (08:48)
[2021-12-19] MEDS: Folic Acid 1 MG TABLET PO SCH (08:48)
[2021-12-19] MEDS: Ascorbic Acid 500 MG TABLET PO SCH (08:49)
[2021-12-19] MEDS: Meropenem 1,000 MG in 0.9 % Sodium Chloride Mini Bag 100 ML IVPB SCH ×3 (08:49→22:53)
[2021-12-19] MEDS: *HR* OxyCODONE ER (12 HR) 10 MG TABLET PO SCH ×2 (08:49→20:58)
[2021-12-19] MEDS ORDERED: 0.9 % Sodium Chloride 500 ML ONE (08:56)
[2021-12-19] MEDS: Ondansetron 4 MG/2 ML VIAL IVP PRN (13:01)
[2021-12-19] MEDS: diazePAM 2 MG TABLET PO PRN (20:58)
[2021-12-19] MEDS: Melatonin 3 MG TABLET PO SCH (20:59)
[2021-12-20] MEDS: *HR* OxyCODONE Immed Rel 5 MG TABLET PO PRN ×2 (05:04→14:04)
[2021-12-20] MEDS: *HR* Enoxaparin 40 MG/0.4 ML SYRINGE SQ SCH (05:05)
[2021-12-20] MEDS: amLODIPine 5 MG TABLET PO SCH (08:42)
[2021-12-20] MEDS: Ascorbic Acid 500 MG TABLET PO SCH (08:42)
[2021-12-20] MEDS: Cholecalciferol (D-3) 1,000 UNIT (25MCG) TABLET PO SCH (08:42)
[2021-12-20] MEDS: Folic Acid 1 MG TABLET PO SCH (08:42)
[2021-12-20] MEDS: Ondansetron ODT 4 MG TAB.RAPDIS SL SCH (08:42)
[2021-12-20] MEDS: Meropenem 1,000 MG in 0.9 % Sodium Chloride Mini Bag 100 ML IVPB SCH ×2 (08:43→17:49)
[2021-12-20] MEDS: Linezolid 600 MG TABLET PO SCH ×2 (08:43→20:56)
[2021-12-20] MEDS: Gabapentin 300 MG CAPSULE PO SCH ×2 (08:43→20:55)
[2021-12-20] MEDS: *HR* OxyCODONE ER (12 HR) 10 MG TABLET PO SCH ×2 (08:44→20:55)
[2021-12-20] MEDS: Melatonin 3 MG TABLET PO SCH (20:56)
[2021-12-20] MEDS: diazePAM 2 MG TABLET PO PRN (20:56)
[2021-12-21] MEDS: Meropenem 1,000 MG in 0.9 % Sodium Chloride Mini Bag 100 ML IVPB SCH ×4 (00:18→23:40)
[2021-12-21] MEDS: *HR* OxyCODONE Immed Rel 5 MG TABLET PO PRN ×3 (00:19→23:40)
[2021-12-21] MEDS: *HR* Enoxaparin 40 MG/0.4 ML SYRINGE SQ SCH (05:18)
[2021-12-21] MEDS: Gabapentin 300 MG CAPSULE PO SCH ×2 (08:18→20:59)
[2021-12-21] MEDS: Cholecalciferol (D-3) 1,000 UNIT (25MCG) TABLET PO SCH (08:18)
[2021-12-21] MEDS: Folic Acid 1 MG TABLET PO SCH (08:19)
[2021-12-21] MEDS: amLODIPine 5 MG TABLET PO SCH (08:19)
[2021-12-21] MEDS: Ascorbic Acid 500 MG TABLET PO SCH (08:19)
[2021-12-21] MEDS: Linezolid 600 MG TABLET PO SCH ×2 (08:20→20:59)
[2021-12-21] MEDS: *HR* OxyCODONE ER (12 HR) 10 MG TABLET PO SCH ×2 (08:20→20:59)
[2021-12-21] MEDS: Ondansetron ODT 4 MG TAB.RAPDIS SL SCH (08:20)
[2021-12-21] MEDS ORDERED: 0.9 % Sodium Chloride 500 ML ONE (10:07)
[2021-12-21] MEDS: Melatonin 3 MG TABLET PO SCH (20:59)
[2021-12-21] MEDS: diazePAM 2 MG TABLET PO PRN (20:59)
[2021-12-22] MEDS: *HR* Enoxaparin 40 MG/0.4 ML SYRINGE SQ SCH (05:30)
[2021-12-22] MEDS: Ondansetron ODT 4 MG TAB.RAPDIS SL SCH (08:01)
[2021-12-22] MEDS: Meropenem 1,000 MG in 0.9 % Sodium Chloride Mini Bag 100 ML IVPB SCH ×3 (08:01→23:53)
[2021-12-22] MEDS: *HR* OxyCODONE Immed Rel 5 MG TABLET PO PRN ×2 (10:32→21:28)
[2021-12-22] MEDS: Gabapentin 300 MG CAPSULE PO SCH ×2 (10:32→21:28)
[2021-12-22] MEDS: Folic Acid 1 MG TABLET PO SCH (10:32)
[2021-12-22] MEDS: amLODIPine 5 MG TABLET PO SCH (10:32)
[2021-12-22] MEDS: Cholecalciferol (D-3) 1,000 UNIT (25MCG) TABLET PO SCH (10:33)
[2021-12-22] MEDS: Ascorbic Acid 500 MG TABLET PO SCH (10:33)
[2021-12-22] MEDS: *HR* OxyCODONE ER (12 HR) 10 MG TABLET PO SCH ×2 (10:33→21:28)
[2021-12-22] MEDS: Linezolid 600 MG TABLET PO SCH ×2 (10:33→21:28)
[2021-12-22] MEDS: Ondansetron ODT 4 MG TAB.RAPDIS SL PRN (10:34)
[2021-12-22] MEDS: Lactobacillus 1 EACH CAP.SPRINK PO SCH (21:28)
[2021-12-22] MEDS: Melatonin 3 MG TABLET PO SCH (21:28)
[2021-12-22] MEDS: Ondansetron 4 MG/2 ML VIAL IVP PRN (21:29)
[2021-12-23] MEDS: *HR* Enoxaparin 40 MG/0.4 ML SYRINGE SQ SCH (05:34)
[2021-12-23] MEDS: Ondansetron ODT 4 MG TAB.RAPDIS SL SCH (08:38)
[2021-12-23] MEDS: Meropenem 1,000 MG in 0.9 % Sodium Chloride Mini Bag 100 ML IVPB SCH ×3 (08:38→23:55)
[2021-12-23] MEDS: Gabapentin 300 MG CAPSULE PO SCH ×2 (09:48→20:17)
[2021-12-23] MEDS: Folic Acid 1 MG TABLET PO SCH (09:48)
[2021-12-23] MEDS: *HR* OxyCODONE ER (12 HR) 10 MG TABLET PO SCH ×2 (09:48→20:18)
[2021-12-23] MEDS: amLODIPine 5 MG TABLET PO SCH (09:48)
[2021-12-23] MEDS: Cholecalciferol (D-3) 1,000 UNIT (25MCG) TABLET PO SCH (09:48)
[2021-12-23] MEDS: Lactobacillus 1 EACH CAP.SPRINK PO SCH ×2 (09:48→20:17)
[2021-12-23] MEDS: Linezolid 600 MG TABLET PO SCH ×2 (09:48→20:17)
[2021-12-23] MEDS: Ascorbic Acid 500 MG TABLET PO SCH (09:48)
[2021-12-23] MEDS ORDERED: 0.9 % Sodium Chloride 500 ML ONE (15:27)
[2021-12-23] MEDS: Ondansetron ODT 4 MG TAB.RAPDIS SL PRN (19:22)
[2021-12-23] MEDS: Melatonin 3 MG TABLET PO SCH (20:18)
[2021-12-23] MEDS: diazePAM 2 MG TABLET PO PRN (20:21)
[2021-12-24] MEDS: *HR* Enoxaparin 40 MG/0.4 ML SYRINGE SQ SCH (05:29)
[2021-12-24] MEDS: Meropenem 1,000 MG in 0.9 % Sodium Chloride Mini Bag 100 ML IVPB SCH ×2 (08:57→15:57)
[2021-12-24] MEDS: Ondansetron ODT 4 MG TAB.RAPDIS SL SCH (08:57)
[2021-12-24] MEDS: Linezolid 600 MG TABLET PO SCH ×2 (09:54→20:07)
[2021-12-24] MEDS: Folic Acid 1 MG TABLET PO SCH (09:54)
[2021-12-24] MEDS: Ascorbic Acid 500 MG TABLET PO SCH (09:54)
[2021-12-24] MEDS: amLODIPine 5 MG TABLET PO SCH (09:54)
[2021-12-24] MEDS: *HR* OxyCODONE ER (12 HR) 10 MG TABLET PO SCH ×2 (09:54→20:05)
[2021-12-24] MEDS: Gabapentin 300 MG CAPSULE PO SCH ×2 (09:54→20:07)
[2021-12-24] MEDS: Cholecalciferol (D-3) 1,000 UNIT (25MCG) TABLET PO SCH (09:54)
[2021-12-24] MEDS: Lactobacillus 1 EACH CAP.SPRINK PO SCH ×2 (12:28→23:59)
[2021-12-24] MEDS: diazePAM 2 MG TABLET PO PRN (20:06)
[2021-12-24] MEDS: *HR* OxyCODONE Immed Rel 5 MG TABLET PO PRN (20:06)
[2021-12-24] MEDS: Melatonin 3 MG TABLET PO SCH (20:06)
[2021-12-24] MEDS: Ondansetron ODT 4 MG TAB.RAPDIS SL PRN (20:07)
[2021-12-25] MEDS: Meropenem 1,000 MG in 0.9 % Sodium Chloride Mini Bag 100 ML IVPB SCH ×4 (00:04→22:01)
[2021-12-25] MEDS: *HR* Enoxaparin 40 MG/0.4 ML SYRINGE SQ SCH (05:27)
[2021-12-25 05:44] LABS: Basophils % 0.4 %; Eosinophils # 0.5 K/mcL (0.0-0.6); Eosinophils % 5.6 %; Hemoglobin 12.9 g/dL (12.9-16.9); Immature Granulocytes % 0.4 % (0-4); Lymphocytes # 2.2 K/mcL (0.6-4.6); Lymphocytes % 26.2 %; Mean Corpuscular HGB Conc 31.5 g/dL (31.6-35.5); Mean Corpuscular Hemoglobin 26.3 pg (28.0-33.3); Mean Corpuscular Volume 83.5 fL (83.0-100.0); Mean Platelet Volume 8.8 fL (9.4-12.4); Monocytes # 0.4 K/mcL (0.0-1.3); Monocytes % 4.9 %; Neutrophils # 5.2 K/mcL (1.6-8.9); Platelet Count 297 K/mcL (140-400); Red Blood Count 4.91 M/mcL (4.19-5.50); Red Cell Distribution Width 14.2 % (11.5-14.5); Segmented Neutrophils % 62.5 %; White Blood Count 8.4 K/mcL (4.3-11.1)
[2021-12-25 05:58] LABS: Alanine Aminotransferase 7 Units/L (7-52); Albumin 2.8 g/dL (3.5-5.7); Albumin/Globulin Ratio 1.3 (1.1-2.2); Alkaline Phosphatase 66 Units/L (34-104); Aspartate Amino Transferase 8 Units/L (13-39); BUN/Creatinine Ratio 19 (6-26); Bilirubin,Total 0.3 mg/dL (0.3-1.0); Blood Urea Nitrogen 19 mg/dL (6-20); Calcium 8.7 mg/dL (8.6-10.3); Carbon Dioxide 27 mEq/L (23-29); Chloride 105 mEq/L (98-107); Globulin 2.2 g/dL (2.4-3.5); Glucose 88 mg/dL (70-105); Osmolality,Calculated 288 (280-300); Potassium 3.9 mEq/L (3.5-5.1); Sodium 138 mEq/L (136-145); eGFR For African Americans > 60 (> 60); eGFR For Non-African Americans > 60 (> 60)
[2021-12-25] MEDS: Ondansetron ODT 4 MG TAB.RAPDIS SL PRN ×2 (08:33→22:02)
[2021-12-25] MEDS: Lactobacillus 1 EACH CAP.SPRINK PO SCH ×2 (09:36→22:02)
[2021-12-25] MEDS: amLODIPine 5 MG TABLET PO SCH (09:36)
[2021-12-25] MEDS: Ascorbic Acid 500 MG TABLET PO SCH (09:36)
[2021-12-25] MEDS: Linezolid 600 MG TABLET PO SCH ×2 (09:36→22:02)
[2021-12-25] MEDS: *HR* OxyCODONE ER (12 HR) 10 MG TABLET PO SCH ×2 (09:36→22:02)
[2021-12-25] MEDS: Cholecalciferol (D-3) 1,000 UNIT (25MCG) TABLET PO SCH (09:36)
[2021-12-25] MEDS: Folic Acid 1 MG TABLET PO SCH (09:37)
[2021-12-25] MEDS: Gabapentin 300 MG CAPSULE PO SCH ×2 (09:37→22:02)
[2021-12-25 09:49] LABS: Vitamin B12 202 pg/mL (250-1100); Vitamin D 25 Hydroxy 37 ng/mL (30-80)
[2021-12-25 10:03] LABS: C-Reactive Protein 44 mg/L (Less than 10)
[2021-12-25] MEDS ORDERED: Iron Sucrose Complex 200 MG in 0.9 % Sodium Chloride 100 ML IVPB SCH (17:00)
[2021-12-25] MEDS: diazePAM 2 MG TABLET PO PRN (22:02)
[2021-12-25] MEDS: Melatonin 3 MG TABLET PO SCH (22:02)
[2021-12-26] MEDS: Meropenem 1,000 MG in 0.9 % Sodium Chloride Mini Bag 100 ML IVPB SCH ×3 (06:11→20:17)
[2021-12-26] MEDS: *HR* Enoxaparin 40 MG/0.4 ML SYRINGE SQ SCH (06:11)
[2021-12-26] MEDS: Ondansetron 4 MG/2 ML VIAL IVP PRN (07:38)
[2021-12-26] MEDS: *HR* OxyCODONE ER (12 HR) 10 MG TABLET PO SCH ×2 (08:59→20:18)
[2021-12-26] MEDS: Ascorbic Acid 500 MG TABLET PO SCH (08:59)
[2021-12-26] MEDS: Linezolid 600 MG TABLET PO SCH ×2 (08:59→20:18)
[2021-12-26] MEDS: Folic Acid 1 MG TABLET PO SCH (08:59)
[2021-12-26] MEDS: amLODIPine 5 MG TABLET PO SCH (08:59)
[2021-12-26] MEDS: Lactobacillus 1 EACH CAP.SPRINK PO SCH ×2 (08:59→20:18)
[2021-12-26] MEDS: Gabapentin 300 MG CAPSULE PO SCH ×2 (08:59→20:18)
[2021-12-26] MEDS ORDERED: Cyanocobalamin (B-12) 1,000 MCG TABLET PO SCH (09:00)
[2021-12-26] MEDS ORDERED: 0.9 % Sodium Chloride 500 ML ONE (10:39)
[2021-12-26] MEDS: *HR* OxyCODONE Immed Rel 5 MG TABLET PO PRN (14:19)
[2021-12-26] MEDS ORDERED: Metoclopramide 10 MG/2 ML VIAL IVP PRN (14:47)
[2021-12-26] MEDS: Iron Sucrose Complex 200 MG in 0.9 % Sodium Chloride 100 ML IVPB SCH (17:32)
[2021-12-26] MEDS ORDERED: Cyanocobalamin (B-12) 1,000 MCG/ML VIAL SQ SCH (18:32)
[2021-12-26] MEDS: Cyanocobalamin (B-12) 1,000 MCG/ML VIAL SQ SCH (20:16)
[2021-12-26] MEDS: polyethylene glycoL 3350 17 GM POWD.PACK PO PRN (20:16)
[2021-12-26] MEDS: Ondansetron ODT 4 MG TAB.RAPDIS SL PRN (20:18)
[2021-12-26] MEDS: diazePAM 2 MG TABLET PO PRN (20:18)
[2021-12-26] MEDS: Melatonin 3 MG TABLET PO SCH (20:18)
[2021-12-26] MEDS: Sennosides/Docusate Sodium TABLET PO SCH (20:18)
[2021-12-27] MEDS: *HR* Enoxaparin 40 MG/0.4 ML SYRINGE SQ SCH (05:57)
[2021-12-27] MEDS: Meropenem 1,000 MG in 0.9 % Sodium Chloride Mini Bag 100 ML IVPB SCH ×3 (05:57→21:17)
[2021-12-27] MEDS: Lactobacillus 1 EACH CAP.SPRINK PO SCH ×2 (08:11→21:21)
[2021-12-27] MEDS: amLODIPine 5 MG TABLET PO SCH (08:11)
[2021-12-27] MEDS: Ascorbic Acid 500 MG TABLET PO SCH (08:11)
[2021-12-27] MEDS: Linezolid 600 MG TABLET PO SCH ×2 (08:11→21:21)
[2021-12-27] MEDS: Sennosides/Docusate Sodium TABLET PO SCH ×2 (08:11→21:21)
[2021-12-27] MEDS: Gabapentin 300 MG CAPSULE PO SCH ×2 (08:11→21:21)
[2021-12-27] MEDS: *HR* OxyCODONE ER (12 HR) 10 MG TABLET PO SCH ×2 (08:11→21:21)
[2021-12-27] MEDS: Folic Acid 1 MG TABLET PO SCH (08:11)
[2021-12-27] MEDS: Cyanocobalamin (B-12) 1,000 MCG/ML VIAL SQ SCH (08:12)
[2021-12-27] MEDS: Ondansetron ODT 4 MG TAB.RAPDIS SL PRN ×2 (08:16→21:21)
[2021-12-27] MEDS: polyethylene glycoL 3350 17 GM POWD.PACK PO SCH (08:20)
[2021-12-27] MEDS: *HR* OxyCODONE Immed Rel 5 MG TABLET PO PRN (13:04)
[2021-12-27] MEDS: Iron Sucrose Complex 200 MG in 0.9 % Sodium Chloride 100 ML IVPB SCH (18:50)
[2021-12-27] MEDS: Melatonin 3 MG TABLET PO SCH (21:21)
[2021-12-27] MEDS: diazePAM 2 MG TABLET PO PRN (21:21)
[2021-12-28] MEDS: Meropenem 1,000 MG in 0.9 % Sodium Chloride Mini Bag 100 ML IVPB SCH ×3 (05:43→20:32)
[2021-12-28] MEDS: *HR* Enoxaparin 40 MG/0.4 ML SYRINGE SQ SCH (05:44)
[2021-12-28] MEDS: Cyanocobalamin (B-12) 1,000 MCG/ML VIAL SQ SCH (08:47)
[2021-12-28] MEDS: Ascorbic Acid 500 MG TABLET PO SCH (08:48)
[2021-12-28] MEDS: Linezolid 600 MG TABLET PO SCH ×2 (08:48→20:36)
[2021-12-28] MEDS: *HR* OxyCODONE ER (12 HR) 10 MG TABLET PO SCH ×2 (08:48→20:36)
[2021-12-28] MEDS: amLODIPine 5 MG TABLET PO SCH (08:48)
[2021-12-28] MEDS: Gabapentin 300 MG CAPSULE PO SCH ×2 (08:48→20:36)
[2021-12-28] MEDS: Lactobacillus 1 EACH CAP.SPRINK PO SCH ×2 (08:48→20:36)
[2021-12-28] MEDS: Folic Acid 1 MG TABLET PO SCH (08:48)
[2021-12-28] MEDS: Sennosides/Docusate Sodium TABLET PO SCH ×2 (08:48→20:36)
[2021-12-28] MEDS: polyethylene glycoL 3350 17 GM POWD.PACK PO SCH ×2 (08:49→17:29)
[2021-12-28] MEDS: *HR* OxyCODONE Immed Rel 5 MG TABLET PO PRN (12:01)
[2021-12-28] MEDS: diazePAM 2 MG TABLET PO PRN (20:35)
[2021-12-28] MEDS: Melatonin 3 MG TABLET PO SCH (20:35)
[2021-12-28] MEDS: Ondansetron ODT 4 MG TAB.RAPDIS SL PRN (20:36)
[2021-12-29] MEDS ORDERED: 0.9 % Sodium Chloride 500 ML ONE (04:56)
[2021-12-29] MEDS: Meropenem 1,000 MG in 0.9 % Sodium Chloride Mini Bag 100 ML IVPB SCH ×3 (05:03→21:32)
[2021-12-29] MEDS: *HR* Enoxaparin 40 MG/0.4 ML SYRINGE SQ SCH (05:03)
[2021-12-29] MEDS: Cyanocobalamin (B-12) 1,000 MCG/ML VIAL SQ SCH (08:34)
[2021-12-29] MEDS: Gabapentin 300 MG CAPSULE PO SCH ×2 (08:35→21:34)
[2021-12-29] MEDS: Folic Acid 1 MG TABLET PO SCH (08:35)
[2021-12-29] MEDS: Linezolid 600 MG TABLET PO SCH ×2 (08:35→21:34)
[2021-12-29] MEDS: amLODIPine 5 MG TABLET PO SCH (08:36)
[2021-12-29] MEDS: polyethylene glycoL 3350 17 GM POWD.PACK PO SCH (08:36)
[2021-12-29] MEDS: *HR* OxyCODONE ER (12 HR) 10 MG TABLET PO SCH ×2 (08:36→21:33)
[2021-12-29] MEDS: Lactobacillus 1 EACH CAP.SPRINK PO SCH ×2 (08:36→21:34)
[2021-12-29] MEDS: Ascorbic Acid 500 MG TABLET PO SCH (08:36)
[2021-12-29] MEDS: Sennosides/Docusate Sodium TABLET PO SCH ×2 (08:36→21:34)
[2021-12-29] MEDS: *HR* OxyCODONE Immed Rel 5 MG TABLET PO PRN ×2 (10:21→17:10)
[2021-12-29] MEDS: Melatonin 3 MG TABLET PO SCH (21:34)
[2021-12-29] MEDS: diazePAM 2 MG TABLET PO PRN (21:35)
[2021-12-30] MEDS: Acetaminophen 325 MG TABLET PO PRN (03:52)
[2021-12-30] MEDS: Ondansetron ODT 4 MG TAB.RAPDIS SL PRN ×2 (03:53→20:49)
[2021-12-30] MEDS: Meropenem 1,000 MG in 0.9 % Sodium Chloride Mini Bag 100 ML IVPB SCH ×3 (05:50→20:50)
[2021-12-30] MEDS: *HR* Enoxaparin 40 MG/0.4 ML SYRINGE SQ SCH (05:51)
[2021-12-30] MEDS: Ondansetron 4 MG/2 ML VIAL IVP PRN (08:40)
[2021-12-30] MEDS: Ascorbic Acid 500 MG TABLET PO SCH (08:45)
[2021-12-30] MEDS: Lactobacillus 1 EACH CAP.SPRINK PO SCH ×2 (08:45→20:49)
[2021-12-30] MEDS: polyethylene glycoL 3350 17 GM POWD.PACK PO SCH (08:45)
[2021-12-30] MEDS: Sennosides/Docusate Sodium TABLET PO SCH ×2 (08:45→20:50)
[2021-12-30] MEDS: Linezolid 600 MG TABLET PO SCH ×2 (08:45→20:49)
[2021-12-30] MEDS: Gabapentin 300 MG CAPSULE PO SCH ×2 (08:45→20:49)
[2021-12-30] MEDS: Folic Acid 1 MG TABLET PO SCH (08:45)
[2021-12-30] MEDS: *HR* OxyCODONE ER (12 HR) 10 MG TABLET PO SCH ×2 (08:45→20:49)
[2021-12-30] MEDS: amLODIPine 5 MG TABLET PO SCH (08:45)
[2021-12-30] MEDS: Cyanocobalamin (B-12) 1,000 MCG/ML VIAL SQ SCH (08:46)
[2021-12-30] MEDS: *HR* OxyCODONE Immed Rel 5 MG TABLET PO PRN (13:05)
[2021-12-30] MEDS: Melatonin 3 MG TABLET PO SCH (20:49)
[2021-12-30] MEDS: diazePAM 2 MG TABLET PO PRN (20:49)
[2021-12-31] MEDS: *HR* Enoxaparin 40 MG/0.4 ML SYRINGE SQ SCH (07:01)
[2021-12-31] MEDS: Meropenem 1,000 MG in 0.9 % Sodium Chloride Mini Bag 100 ML IVPB SCH ×3 (07:01→21:06)
[2021-12-31] MEDS: Ondansetron ODT 4 MG TAB.RAPDIS SL PRN ×3 (07:01→18:59)
[2021-12-31] MEDS: Folic Acid 1 MG TABLET PO SCH (09:23)
[2021-12-31] MEDS: amLODIPine 5 MG TABLET PO SCH (09:23)
[2021-12-31] MEDS: *HR* OxyCODONE ER (12 HR) 10 MG TABLET PO SCH ×2 (09:23→21:07)
[2021-12-31] MEDS: Sennosides/Docusate Sodium TABLET PO SCH ×2 (09:23→21:06)
[2021-12-31] MEDS: Ascorbic Acid 500 MG TABLET PO SCH (09:23)
[2021-12-31] MEDS: Linezolid 600 MG TABLET PO SCH ×2 (09:23→21:06)
[2021-12-31] MEDS: Gabapentin 300 MG CAPSULE PO SCH ×2 (09:23→21:07)
[2021-12-31] MEDS: polyethylene glycoL 3350 17 GM POWD.PACK PO SCH (09:23)
[2021-12-31] MEDS: Lactobacillus 1 EACH CAP.SPRINK PO SCH ×2 (09:23→21:06)
[2021-12-31] MEDS: Cyanocobalamin (B-12) 1,000 MCG/ML VIAL SQ SCH (09:23)
[2021-12-31] MEDS: *HR* OxyCODONE Immed Rel 5 MG TABLET PO PRN (12:59)
[2021-12-31] MEDS: Melatonin 3 MG TABLET PO SCH (21:06)
[2021-12-31] MEDS: diazePAM 2 MG TABLET PO PRN (21:07)
[2022-01-01] MEDS: Meropenem 1,000 MG in 0.9 % Sodium Chloride Mini Bag 100 ML IVPB SCH ×3 (05:22→20:14)
[2022-01-01] MEDS: *HR* Enoxaparin 40 MG/0.4 ML SYRINGE SQ SCH (05:23)
[2022-01-01] MEDS: Ondansetron ODT 4 MG TAB.RAPDIS SL PRN ×2 (05:23→20:14)
[2022-01-01 05:57] LABS: Alanine Aminotransferase 8 Units/L (7-52); Albumin 2.9 g/dL (3.5-5.7); Albumin/Globulin Ratio 1.1 (1.1-2.2); Alkaline Phosphatase 61 Units/L (34-104); Aspartate Amino Transferase 8 Units/L (13-39); BUN/Creatinine Ratio 15 (6-26); Bilirubin,Total 0.2 mg/dL (0.3-1.0); Blood Urea Nitrogen 18 mg/dL (6-20); Calcium 8.7 mg/dL (8.6-10.3); Carbon Dioxide 27 mEq/L (23-29); Chloride 105 mEq/L (98-107); Globulin 2.6 g/dL (2.4-3.5); Glucose 89 mg/dL (70-105); Osmolality,Calculated 287 (280-300); Potassium 3.7 mEq/L (3.5-5.1); Sodium 138 mEq/L (136-145); Total Protein 5.5 g/dL (6.4-8.9); eGFR For African Americans > 60 (> 60); eGFR For Non-African Americans > 60 (> 60)
[2022-01-01 06:45] LABS: Basophils % 0.3 %; Eosinophils # 0.7 K/mcL (0.0-0.6); Eosinophils % 5.2 %; Hematocrit 29.2 % (37.5-50.1); Hemoglobin 9.4 g/dL (12.9-16.9); Immature Granulocytes % 0.3 % (0-4); Lymphocytes # 3.5 K/mcL (0.6-4.6); Lymphocytes % 27.8 %; Mean Corpuscular HGB Conc 32.2 g/dL (31.6-35.5); Mean Corpuscular Hemoglobin 26.9 pg (28.0-33.3); Mean Corpuscular Volume 83.7 fL (83.0-100.0); Mean Platelet Volume 8.8 fL (9.4-12.4); Monocytes # 0.6 K/mcL (0.0-1.3); Monocytes % 4.8 %; Neutrophils # 7.7 K/mcL (1.6-8.9); Platelet Count 433 K/mcL (140-400); Red Blood Count 3.49 M/mcL (4.19-5.50); Red Cell Distribution Width 14.6 % (11.5-14.5); Segmented Neutrophils % 61.6 %; White Blood Count 12.5 K/mcL (4.3-11.1)
[2022-01-01] MEDS: polyethylene glycoL 3350 17 GM POWD.PACK PO SCH (08:30)
[2022-01-01] MEDS: Sennosides/Docusate Sodium TABLET PO SCH ×2 (08:31→20:04)
[2022-01-01] MEDS: Linezolid 600 MG TABLET PO SCH ×2 (08:31→20:03)
[2022-01-01] MEDS: Ondansetron 4 MG/2 ML VIAL IVP PRN (08:31)
[2022-01-01] MEDS: amLODIPine 5 MG TABLET PO SCH (08:31)
[2022-01-01] MEDS: Ascorbic Acid 500 MG TABLET PO SCH (08:31)
[2022-01-01] MEDS: *HR* OxyCODONE ER (12 HR) 10 MG TABLET PO SCH ×2 (08:31→20:03)
[2022-01-01] MEDS: Folic Acid 1 MG TABLET PO SCH (08:31)
[2022-01-01] MEDS: Lactobacillus 1 EACH CAP.SPRINK PO SCH ×2 (08:31→20:03)
[2022-01-01] MEDS: Gabapentin 300 MG CAPSULE PO SCH ×2 (08:31→20:03)
[2022-01-01] MEDS: Cyanocobalamin (B-12) 1,000 MCG/ML VIAL SQ SCH (08:32)
[2022-01-01 12:48] LABS: C-Reactive Protein 34 mg/L (Less than 10)
[2022-01-01] MEDS: *HR* OxyCODONE Immed Rel 5 MG TABLET PO PRN (13:55)
[2022-01-01] MEDS: Melatonin 3 MG TABLET PO SCH (20:03)
[2022-01-01] MEDS ORDERED: diazePAM 2 MG TABLET PO PRN (20:17)
[2022-01-02] MEDS: Meropenem 1,000 MG in 0.9 % Sodium Chloride Mini Bag 100 ML IVPB SCH ×3 (05:05→21:05)
[2022-01-02] MEDS: *HR* Enoxaparin 40 MG/0.4 ML SYRINGE SQ SCH (05:08)
[2022-01-02] MEDS: polyethylene glycoL 3350 17 GM POWD.PACK PO SCH (08:42)
[2022-01-02] MEDS: Ascorbic Acid 500 MG TABLET PO SCH (08:43)
[2022-01-02] MEDS: Gabapentin 300 MG CAPSULE PO SCH ×2 (08:43→21:08)
[2022-01-02] MEDS: Linezolid 600 MG TABLET PO SCH ×2 (08:43→21:08)
[2022-01-02] MEDS: Ondansetron 4 MG/2 ML VIAL IVP PRN (08:43)
[2022-01-02] MEDS: amLODIPine 5 MG TABLET PO SCH (08:43)
[2022-01-02] MEDS: Lactobacillus 1 EACH CAP.SPRINK PO SCH ×2 (08:43→21:08)
[2022-01-02] MEDS: Sennosides/Docusate Sodium TABLET PO SCH ×2 (08:43→21:08)
[2022-01-02] MEDS: *HR* OxyCODONE ER (12 HR) 10 MG TABLET PO SCH ×2 (08:43→21:08)
[2022-01-02] MEDS: Cyanocobalamin (B-12) 1,000 MCG/ML VIAL SQ SCH (08:44)
[2022-01-02] MEDS: Folic Acid 1 MG TABLET PO SCH (08:44)
[2022-01-02] MEDS: *HR* OxyCODONE Immed Rel 5 MG TABLET PO PRN (13:50)
[2022-01-02] MEDS: Ondansetron ODT 4 MG TAB.RAPDIS SL PRN (21:08)
[2022-01-02] MEDS: Melatonin 3 MG TABLET PO SCH (21:08)
[2022-01-03] MEDS: Meropenem 1,000 MG in 0.9 % Sodium Chloride Mini Bag 100 ML IVPB SCH ×3 (05:57→21:08)
[2022-01-03] MEDS: *HR* Enoxaparin 40 MG/0.4 ML SYRINGE SQ SCH (05:57)
[2022-01-03] MEDS: *HR* OxyCODONE ER (12 HR) 10 MG TABLET PO SCH ×2 (10:16→20:41)
[2022-01-03] MEDS: amLODIPine 5 MG TABLET PO SCH (10:16)
[2022-01-03] MEDS: Ascorbic Acid 500 MG TABLET PO SCH (10:16)
[2022-01-03] MEDS: Gabapentin 300 MG CAPSULE PO SCH ×2 (10:16→20:41)
[2022-01-03] MEDS: Lactobacillus 1 EACH CAP.SPRINK PO SCH ×2 (10:16→20:41)
[2022-01-03] MEDS: Linezolid 600 MG TABLET PO SCH ×2 (10:16→20:41)
[2022-01-03] MEDS: Folic Acid 1 MG TABLET PO SCH (10:17)
[2022-01-03] MEDS: Cyanocobalamin (B-12) 1,000 MCG/ML VIAL SQ SCH (10:17)
[2022-01-03] MEDS: Sennosides/Docusate Sodium TABLET PO SCH ×2 (10:17→20:41)
[2022-01-03] MEDS: *HR* OxyCODONE Immed Rel 5 MG TABLET PO PRN (10:29)
[2022-01-03] MEDS: polyethylene glycoL 3350 17 GM POWD.PACK PO SCH (14:12)
[2022-01-03] MEDS: Ondansetron ODT 4 MG TAB.RAPDIS SL PRN (20:41)
[2022-01-03] MEDS: Melatonin 3 MG TABLET PO SCH (20:41)
[2022-01-04] MEDS: Meropenem 1,000 MG in 0.9 % Sodium Chloride Mini Bag 100 ML IVPB SCH ×3 (05:52→20:36)
[2022-01-04] MEDS: *HR* Enoxaparin 40 MG/0.4 ML SYRINGE SQ SCH (05:52)
[2022-01-04] MEDS: Gabapentin 300 MG CAPSULE PO SCH ×2 (09:14→20:39)
[2022-01-04] MEDS: Ascorbic Acid 500 MG TABLET PO SCH (09:15)
[2022-01-04] MEDS: *HR* OxyCODONE ER (12 HR) 10 MG TABLET PO SCH ×2 (09:15→20:38)
[2022-01-04] MEDS: Lactobacillus 1 EACH CAP.SPRINK PO SCH ×2 (09:15→20:39)
[2022-01-04] MEDS: polyethylene glycoL 3350 17 GM POWD.PACK PO SCH (09:15)
[2022-01-04] MEDS: Folic Acid 1 MG TABLET PO SCH (09:15)
[2022-01-04] MEDS: Linezolid 600 MG TABLET PO SCH ×2 (09:15→20:39)
[2022-01-04] MEDS: Sennosides/Docusate Sodium TABLET PO SCH ×2 (09:15→20:39)
[2022-01-04] MEDS: amLODIPine 5 MG TABLET PO SCH (09:15)
[2022-01-04] MEDS: Cyanocobalamin (B-12) 1,000 MCG/ML VIAL SQ SCH (09:15)
[2022-01-04] MEDS: *HR* OxyCODONE Immed Rel 5 MG TABLET PO PRN (11:49)
[2022-01-04] MEDS: Ondansetron ODT 4 MG TAB.RAPDIS SL PRN (20:38)
[2022-01-04] MEDS: Melatonin 3 MG TABLET PO SCH (20:39)
[2022-01-05] MEDS: Meropenem 1,000 MG in 0.9 % Sodium Chloride Mini Bag 100 ML IVPB SCH ×3 (05:27→21:24)
[2022-01-05] MEDS: polyethylene glycoL 3350 17 GM POWD.PACK PO SCH (09:18)
[2022-01-05] MEDS: Cyanocobalamin (B-12) 1,000 MCG/ML VIAL SQ SCH (09:21)
[2022-01-05] MEDS: Ascorbic Acid 500 MG TABLET PO SCH (09:21)
[2022-01-05] MEDS: Gabapentin 300 MG CAPSULE PO SCH ×2 (09:21→21:21)
[2022-01-05] MEDS: Lactobacillus 1 EACH CAP.SPRINK PO SCH ×2 (09:21→21:20)
[2022-01-05] MEDS: Sennosides/Docusate Sodium TABLET PO SCH ×2 (09:22→21:22)
[2022-01-05] MEDS: amLODIPine 5 MG TABLET PO SCH (09:22)
[2022-01-05] MEDS: Folic Acid 1 MG TABLET PO SCH (09:22)
[2022-01-05] MEDS: Linezolid 600 MG TABLET PO SCH ×2 (09:22→21:23)
[2022-01-05] MEDS: *HR* OxyCODONE ER (12 HR) 10 MG TABLET PO SCH ×2 (09:22→21:22)
[2022-01-05] MEDS: Ondansetron ODT 4 MG TAB.RAPDIS SL PRN (09:31)
[2022-01-05] MEDS: *HR* OxyCODONE Immed Rel 5 MG TABLET PO PRN (10:28)
[2022-01-05] MEDS: Melatonin 3 MG TABLET PO SCH (21:21)
[2022-01-06] MEDS: Meropenem 1,000 MG in 0.9 % Sodium Chloride Mini Bag 100 ML IVPB SCH ×3 (05:46→21:11)
[2022-01-06] MEDS: Cyanocobalamin (B-12) 1,000 MCG/ML VIAL SQ SCH (09:13)
[2022-01-06] MEDS: Lactobacillus 1 EACH CAP.SPRINK PO SCH ×2 (09:13→21:13)
[2022-01-06] MEDS: Gabapentin 300 MG CAPSULE PO SCH ×2 (09:13→21:13)
[2022-01-06] MEDS: amLODIPine 5 MG TABLET PO SCH (09:13)
[2022-01-06] MEDS: Sennosides/Docusate Sodium TABLET PO SCH ×2 (09:13→21:13)
[2022-01-06] MEDS: Folic Acid 1 MG TABLET PO SCH (09:13)
[2022-01-06] MEDS: Ascorbic Acid 500 MG TABLET PO SCH (09:13)
[2022-01-06] MEDS: *HR* OxyCODONE ER (12 HR) 10 MG TABLET PO SCH ×2 (09:13→21:13)
[2022-01-06] MEDS: Linezolid 600 MG TABLET PO SCH ×2 (09:13→21:13)
[2022-01-06] MEDS: Ondansetron ODT 4 MG TAB.RAPDIS SL PRN ×2 (09:22→21:13)
[2022-01-06] MEDS: polyethylene glycoL 3350 17 GM POWD.PACK PO SCH (09:22)
[2022-01-06] MEDS ORDERED: *HR* OxyCODONE Immed Rel 5 MG TABLET PO PRN (13:04)
[2022-01-06 14:08] LABS: SARS-CoV-2 by NAA Not Detected (Not Detected)
[2022-01-06] MEDS: Melatonin 3 MG TABLET PO SCH (21:13)
[2022-01-07] MEDS: Meropenem 1,000 MG in 0.9 % Sodium Chloride Mini Bag 100 ML IVPB SCH ×3 (05:54→21:54)
[2022-01-07] MEDS: Linezolid 600 MG TABLET PO SCH ×2 (08:49→21:52)
[2022-01-07] MEDS: amLODIPine 5 MG TABLET PO SCH (08:49)
[2022-01-07] MEDS: Lactobacillus 1 EACH CAP.SPRINK PO SCH ×2 (08:49→21:50)
[2022-01-07] MEDS: Folic Acid 1 MG TABLET PO SCH (08:49)
[2022-01-07] MEDS: *HR* OxyCODONE ER (12 HR) 10 MG TABLET PO SCH ×2 (08:50→21:51)
[2022-01-07] MEDS: Cyanocobalamin (B-12) 1,000 MCG/ML VIAL SQ SCH (08:50)
[2022-01-07] MEDS: Ascorbic Acid 500 MG TABLET PO SCH (08:50)
[2022-01-07] MEDS: Gabapentin 300 MG CAPSULE PO SCH ×2 (08:50→21:51)
[2022-01-07] MEDS: Sennosides/Docusate Sodium TABLET PO SCH ×2 (08:50→21:52)
[2022-01-07] MEDS: polyethylene glycoL 3350 17 GM POWD.PACK PO SCH (09:22)
[2022-01-07] MEDS: Melatonin 3 MG TABLET PO SCH (21:50)
[2022-01-08 04:48] LABS: Basophils % 0.3 %; Eosinophils # 0.6 K/mcL (0.0-0.6); Hemoglobin 9.3 g/dL (12.9-16.9); Immature Granulocytes % 0.5 % (0-4); Lymphocytes # 3.1 K/mcL (0.6-4.6); Lymphocytes % 24.7 %; Mean Corpuscular HGB Conc 32.1 g/dL (31.6-35.5); Mean Corpuscular Hemoglobin 26.5 pg (28.0-33.3); Mean Corpuscular Volume 82.6 fL (83.0-100.0); Mean Platelet Volume 9.1 fL (9.4-12.4); Monocytes # 0.7 K/mcL (0.0-1.3); Monocytes % 5.3 %; Platelet Count 445 K/mcL (140-400); Red Blood Count 3.51 M/mcL (4.19-5.50); Red Cell Distribution Width 14.6 % (11.5-14.5); Segmented Neutrophils % 64.2 %; White Blood Count 12.5 K/mcL (4.3-11.1)
[2022-01-08 05:05] LABS: Alanine Aminotransferase 8 Units/L (7-52); Albumin/Globulin Ratio 1.2 (1.1-2.2); Alkaline Phosphatase 61 Units/L (34-104); Aspartate Amino Transferase 8 Units/L (13-39); BUN/Creatinine Ratio 15 (6-26); Bilirubin,Total 0.3 mg/dL (0.3-1.0); Blood Urea Nitrogen 16 mg/dL (6-20); Calcium 8.8 mg/dL (8.6-10.3); Carbon Dioxide 27 mEq/L (23-29); Chloride 105 mEq/L (98-107); Globulin 2.5 g/dL (2.4-3.5); Glucose 86 mg/dL (70-105); Osmolality,Calculated 286 (280-300); Potassium 3.6 mEq/L (3.5-5.1); Sodium 138 mEq/L (136-145); Total Protein 5.5 g/dL (6.4-8.9); eGFR For African Americans > 60 (> 60); eGFR For Non-African Americans > 60 (> 60)
[2022-01-08] MEDS: Meropenem 1,000 MG in 0.9 % Sodium Chloride Mini Bag 100 ML IVPB SCH ×3 (05:40→21:13)
[2022-01-08 07:56] LABS: C-Reactive Protein 34 mg/L (Less than 10)
[2022-01-08] MEDS: Ondansetron 4 MG/2 ML VIAL IVP PRN (08:08)
[2022-01-08] MEDS: Folic Acid 1 MG TABLET PO SCH (09:05)
[2022-01-08] MEDS: Lactobacillus 1 EACH CAP.SPRINK PO SCH ×2 (09:05→19:26)
[2022-01-08] MEDS: Sennosides/Docusate Sodium TABLET PO SCH ×2 (09:05→19:26)
[2022-01-08] MEDS: Gabapentin 300 MG CAPSULE PO SCH ×2 (09:06→19:26)
[2022-01-08] MEDS: Linezolid 600 MG TABLET PO SCH ×2 (09:06→19:26)
[2022-01-08] MEDS: *HR* OxyCODONE ER (12 HR) 10 MG TABLET PO SCH ×2 (09:06→19:26)
[2022-01-08] MEDS: Ascorbic Acid 500 MG TABLET PO SCH (09:06)
[2022-01-08] MEDS: amLODIPine 5 MG TABLET PO SCH (09:06)
[2022-01-08] MEDS: Cyanocobalamin (B-12) 1,000 MCG/ML VIAL SQ SCH (09:07)
[2022-01-08] MEDS: polyethylene glycoL 3350 17 GM POWD.PACK PO SCH (09:08)
[2022-01-08] MEDS: Melatonin 3 MG TABLET PO SCH (19:26)
[2022-01-08] MEDS: Ondansetron ODT 4 MG TAB.RAPDIS SL PRN (19:26)
[2022-01-09] MEDS: Acetaminophen 325 MG TABLET PO PRN (00:30)
[2022-01-09] MEDS: Meropenem 1,000 MG in 0.9 % Sodium Chloride Mini Bag 100 ML IVPB SCH ×3 (05:15→20:56)
[2022-01-09] MEDS: polyethylene glycoL 3350 17 GM POWD.PACK PO SCH (07:57)
[2022-01-09] MEDS: Cyanocobalamin (B-12) 1,000 MCG/ML VIAL SQ SCH (07:57)
[2022-01-09] MEDS: Lactobacillus 1 EACH CAP.SPRINK PO SCH ×2 (07:58→20:57)
[2022-01-09] MEDS: Ondansetron ODT 4 MG TAB.RAPDIS SL PRN (07:58)
[2022-01-09] MEDS: Gabapentin 300 MG CAPSULE PO SCH ×2 (07:58→20:57)
[2022-01-09] MEDS: Ascorbic Acid 500 MG TABLET PO SCH (07:58)
[2022-01-09] MEDS: Linezolid 600 MG TABLET PO SCH ×2 (07:58→20:57)
[2022-01-09] MEDS: amLODIPine 5 MG TABLET PO SCH (07:58)
[2022-01-09] MEDS: Sennosides/Docusate Sodium TABLET PO SCH ×2 (07:58→20:57)
[2022-01-09] MEDS: *HR* OxyCODONE ER (12 HR) 10 MG TABLET PO SCH ×2 (07:58→20:56)
[2022-01-09] MEDS: Folic Acid 1 MG TABLET PO SCH (07:58)
[2022-01-09] MEDS: Melatonin 3 MG TABLET PO SCH (20:56)
[2022-01-10] MEDS: Meropenem 1,000 MG in 0.9 % Sodium Chloride Mini Bag 100 ML IVPB SCH (04:39)
[2022-01-10 07:10] VITALS: BP 126/74; PULSE 83; RESP 14; TEMP 96.7; O2SAT 95
[2022-01-10] MEDS: Gabapentin 300 MG CAPSULE PO SCH (07:41)
[2022-01-10] MEDS: Linezolid 600 MG TABLET PO SCH (07:41)
[2022-01-10] MEDS: Folic Acid 1 MG TABLET PO SCH (07:42)
[2022-01-10] MEDS: Ascorbic Acid 500 MG TABLET PO SCH (07:42)
[2022-01-10] MEDS: Sennosides/Docusate Sodium TABLET PO SCH (07:42)
[2022-01-10] MEDS: *HR* OxyCODONE ER (12 HR) 10 MG TABLET PO SCH (07:42)
[2022-01-10] MEDS: Lactobacillus 1 EACH CAP.SPRINK PO SCH (07:42)
[2022-01-10] MEDS: polyethylene glycoL 3350 17 GM POWD.PACK PO SCH (07:42)
[2022-01-10] MEDS: amLODIPine 5 MG TABLET PO SCH (07:42)
[2022-01-10] MEDS: Cyanocobalamin (B-12) 1,000 MCG/ML VIAL SQ SCH (07:43)
[2022-01-10] MEDS: Ondansetron 4 MG/2 ML VIAL IVP PRN (08:11)
== END 2022-01-10 11:00 | disposition short-term general hospital (02) | DRG 592 ==
LOC: INPGRE 15:28
PROVIDERS: ADMIT Family Medicine; ATTEND Family Medicine